=== PATIENT | male | born 1970 | race African-American/Black ===

== ENCOUNTER 2020-02-24 22:29 | Emergency (ER) | payer OTHER ==
[~2020-02-24] VITALS: Ht 182.9 cm; Wt 136.0 kg
[~2020-02-24 22:29] MED LIST: AMOXICILLIN/CL875 MG PO; AMOXICILLIN875 MG PO; ERYTHROMYCIN O3.5 GM OU; FLEXERIL PO; LEVOTHYROXIN75 MCG PO; LORTAB 5 OR; NAPROSYN500 MG PO; NO MEDS; NORVASC5 M1 PO; ULTRAM50 M1 PO; ULTRAM50 MG OR
[2020-02-25 02:07] VITALS: BP 154/86
== END 2020-02-25 02:07 | disposition home or self-care (01) | DRG 305 ==
LOC: ED 22:29
DX: I10 Essential (primary) hypertension (principal)

== ENCOUNTER 2021-02-27 17:15 | Emergency (ER) | payer OTHER ==
[~2021-02-27] VITALS: Ht 182.9 cm; Wt 137.0 kg
[2021-02-27 19:15] VITALS: BP 174/89
== END 2021-02-27 19:15 | disposition home or self-care (01) | DRG 605 ==
LOC: ED 17:15
PROC: 0HQGXZZ Repair Left Hand Skin, External Approach (ICD-10-PCS; principal; 2021-02-27)
DX: S61.215A Laceration without foreign body of left ring finger without damage to nail, initial encounter (principal); I10 Essential (primary) hypertension; W26.8XXA Contact with other sharp object(s), not elsewhere classified, initial encounter; Y93.89 Activity, other specified; Y92.89 Other specified places as the place of occurrence of the external cause; Y99.0 Civilian activity done for income or pay